=== PATIENT | male | born 1995 | race Hispanic/Latino ===

== ENCOUNTER 2021-07-03 22:55 | Emergency (ER) | payer BC ==
[~2021-07-03] VITALS: Ht 170.2 cm; Wt 65.8 kg
[2021-07-03] MEDS ORDERED: ONDANSETRON HCL INJ 2MG/ML 2ML 2 MG/ML VIAL IV STA (23:34)
[2021-07-03] MEDS ORDERED: FAMOTIDINE 20 MG/2 ML VIAL IV STA (23:34)
[2021-07-03] MEDS ORDERED: SODIUM CHLORIDE 0.9% 1000ML 1,000 ML IV SCH (23:45)
[2021-07-04] MEDS ORDERED: SODIUM CHLORIDE 0.9% 1000ML 1,000 ML ONE
[2021-07-04] MEDS ORDERED: FAMOTIDINE 20 MG/2 ML VIAL IV ONE
[2021-07-04] MEDS ORDERED: ONDANSETRON HCL INJ 2MG/ML 2ML 2 MG/ML VIAL ONE
[2021-07-04] MEDS ORDERED: ONDANSETRON ODT4 MG PO (00:48)
[2021-07-04] MEDS ORDERED: DICYCLOMINE HCL10 MG PO (00:49)
== END 2021-07-04 01:10 | disposition home or self-care (01) ==
LOC: FSED 23:35
DX: R11.2 Nausea with vomiting, unspecified (principal); K52.9 Noninfective gastroenteritis and colitis, unspecified; R05 Cough; R51.9 Headache, unspecified
CPT/HCPCS: 71046; 74019; 80048; 80076; 81003; 85025; 99283; J2405; J7030